=== PATIENT | male | born 2000 | race Hispanic/Latino ===

== ENCOUNTER 2018-08-01 14:57 | Emergency (ER) | payer BC ==
[2018-08-01] MEDS ORDERED: Adacel (T-DAP) 0.5 ML VIAL ONE (16:28)
[2018-08-01] MEDS ORDERED: Bacitracin Zinc 1 Packet ONE (16:28)
== END 2018-08-01 16:52 | disposition home or self-care (01) ==
LOC: ERS 14:57
DX: S51.812A Laceration without foreign body of left forearm, initial encounter (principal); W22.8XXA Striking against or struck by other objects, initial encounter; Y92.009 Unspecified place in unspecified non-institutional (private) residence as the place of occurrence of the external cause; Z23 Encounter for immunization
CPT/HCPCS: 12001; 90471; 90715

== ENCOUNTER 2018-08-09 10:22 | Emergency (ER) | payer BC | END 2018-08-09 11:40 | disposition left against medical advice (07) | LOC: ERS 10:22 | DX: Z53.21 Procedure and treatment not carried out due to patient leaving prior to being seen by health care provider (principal) ==